=== PATIENT | male | born 1995 | race Caucasian/White ===

== ENCOUNTER 2019-06-06 12:52 | Emergency (ER) | payer OTHER ==
[~2019-06-06] VITALS: Ht 182.9 cm; Wt 60.7 kg
[2019-06-06] MEDS ORDERED: LIDOCAINE 1% SDV INJ 30 ML VIAL SC STA (14:12)
[2019-06-06] MEDS ORDERED: LIDOCAINE 1% MDV 20ML VIAL SC STA (14:15)
[2019-06-06 14:59] VITALS: BP 112/71
== END 2019-06-06 15:04 | disposition home or self-care (01) ==
LOC: M ED 12:52
DX: L72.3 Sebaceous cyst (principal); Z77.098 Contact with and (suspected) exposure to other hazardous, chiefly nonmedicinal, chemicals

== ENCOUNTER 2019-08-23 10:34 | Emergency (ER) | payer OTHER ==
[~2019-08-23] VITALS: Ht 182.9 cm; Wt 61.9 kg
[2019-08-23] MEDS ORDERED: LIDOCAINE 1% SDV INJ 30 ML VIAL SC SCH (11:15)
[2019-08-23] MEDS ORDERED: LIDOCAINE 1% MDV 20ML VIAL As Ordered ONE (11:16)
[2019-08-23] MEDS ORDERED: LIDOCAINE 1% MDV 20ML VIAL SC ONE (11:30)
[2019-08-23] MEDS ORDERED: BACT800T5 PO (11:37)
[2019-08-23 11:49] VITALS: BP 118/76
[2019-08-23] MEDS ORDERED: LIDOCAINE 1% MDV 20ML VIAL IM ONE (12:00)
== END 2019-08-23 12:01 | disposition home or self-care (01) ==
LOC: M ED 10:34
DX: L72.3 Sebaceous cyst (principal); F17.200 Nicotine dependence, unspecified, uncomplicated